=== PATIENT | female | born 1995 | race African-American/Black ===

== ENCOUNTER 2020-01-22 14:49 | Emergency (ER) | payer MEDICAID, OTHER ==
[~2020-01-22] VITALS: Ht 167.6 cm; Wt 66.0 kg
[2020-01-22 17:31] LABS: COLOR URINE YELLOW (YELLOW); KETONES URINE NEGATIVE (NEGATIVE); LEUKOCYTE ESTERASE URINE 1+ (NEGATIVE); NITRITE URINE NEGATIVE (NEGATIVE); OCCULT BLOOD URINE NEGATIVE (NEGATIVE); PH URINE 6.5 (4.5-8.0); PROTEIN URINE NEGATIVE (NEGATIVE); SPECIFIC GRAVITY URINE 1.028 (1.005-1.030)
[2020-01-22 17:32] LABS: CLARITY URINE HAZY (CLEAR)
[2020-01-22 18:42] LABS: BASOPHILS % 1.1 % (0.0-2.0); EOSINOPHILS % 3.3 % (0.0-5.0); HEMATOCRIT. 36.9 % (36.0-48.0); LYMPHOCYTES % 39.7 % (20.0-50.0); MEAN CORPUSCULAR HEMOGLOBIN 32.1 pg (28.0-32.0); MEAN CORPUSCULAR VOLUME 90.9 fL (81.0-99.0); MONOCYTES % 9.1 % (2.0-8.0); NEUTROPHILS % 46.8 % (40.0-76.0); PLATELET 304 x1000/uL (130-400); RED BLOOD CELL COUNT 4.06 mill/uL (4.2-5.4); RED CELL DISTRIBUTION WIDTH 12.6 % (11.6-14.6)
[2020-01-22 18:47] LABS: CHLORIDE 105 mEq/L (98-107)
[2020-01-22 19:12] LABS: B-HCG QUANTITATIVE 21028 mIU/mL (<3)
[2020-01-22 20:00] VITALS: BP 118/74
== END 2020-01-22 21:10 | disposition home or self-care (01) ==
LOC: ER 14:49
DX: O46.91 Antepartum hemorrhage, unspecified, first trimester (principal); Z3A.01 Less than 8 weeks gestation of pregnancy
CPT/HCPCS: 36415; 76801; 76802; 80053; 81003; 81025; 84702; 85025; 86850; 86900; 93005; 99285